=== PATIENT | male | born 1990 | race Caucasian/White ===

== ENCOUNTER 2024-12-05 08:51 | Outpatient (REF) | payer OTHER, SELFPAY ==
[2024-12-05 09:02] LABS: MANUAL DIFF FLAG NO
[2024-12-05 09:05] LABS: Basophils Absolute Auto 0.1 X10*3/uL (0.0-0.2); Basophils Percent Auto 0.7 % (0-2); Eosinophils Absolute Auto 0.2 X10*3/uL (0.0-0.4); Eosinophils Percent Auto 2.1 % (0-4); Hematocrit 46.1 % (42.0-52.0); Hemoglobin 16.9 g/dl (14.0-18.0); Imm Gran Abs Auto 0.07 X10*3/uL (0.00-0.03); Imm Gran Pct Auto 0.8 % (0.0-0.4); Lymphocytes Absolute Auto 3.2 X10*3/uL (1.2-4.9); Lymphocytes Percent Auto 38.2 % (20-40); Mean Corpuscular HGB Conc 36.7 g/dl (31.0-36.0); Mean Corpuscular Hemoglobin 31.7 pg (27.0-33.0); Mean Corpuscular Volume 86.5 fL (80.0-98.0); Mean Platelet Volume 10.2 fL (9.4-12.4); Monocytes Absolute Auto 0.8 X10*3/uL (0.1-1.2); Monocytes Percent Auto 9.5 % (2-11); Neutrophils Percent Auto 48.7 % (45-73); Platelet Count 298 X10*3/uL (160-400); Red Blood Count 5.33 X10*6/uL (4.60-5.80); Red Cell Distribution Width 11.9 % (11.0-16.0); White Blood Count 8.3 X10*3/uL (4.8-10.8)
--- OUTSIDE RECORDS SUMMARY | 2024-12-05 09:16 | XMS_ITS | Clinical Summary ---
Author Organization [facility] Address [address] [facility] [address] Care Team Providers Care Nursing Home Physician Name Role Phone Unavailable Primary Care Provider Unavailabl e Allergies No known active allergies Medications cholecalciferol , VITAMIN D3, 5,000 Units tablet 01/05/2021 Active amLODIPine (NORVASC) 5 mg tablet Take 5 mg by mouth. 09/07/2017 Active ergocalciferol (VITAMIN D-2) 1,250 mcg (50,000 unit) capsule TAKE 1 CAPSULE BY MOUTH ONE TIME PER WEEK 12/15/2021 Active escitalopram (LEXAPRO) 10 mg tablet Take 10 mg by mouth 1 (one) time each day. 01/07/2022 Active hydroCHLOROthia zide (HYDRODIURIL) 25 mg tablet 09/07/2019 Active losartan (COZAAR) 100 mg tablet Take 100 mg by mouth. 09/07/2019 Active Active Problems Problem Noted Date Diagnosed Date Hypertension 03/16/2021 Social History Tobacco Use Types Packs/Day Years Used Date Smoking Tobacco: Never Smokeless Tobacco: Never Tobacco Cessation:Counseling Given: Not Answered Alcohol Use Standard Drinks/Week Comments Yes 4 (1 standard drink = 0.6 oz pur e alcohol) Sex and Gender Information Value Date Recorded Sex Assigned at Not on file Legal Sex Male 6:33 AM PDT Gender Identity Not on file Sexual Orientation Not on file Last Filed Vital Signs Vital Sign Reading Time Taken Comments Blood Pressure 146/89 01/11/2022 8:35 AM EDT Pulse 77 01/11/2022 8:35 AM EDT Temperature - - Respiratory Rate - - Oxygen Saturation - - Inhaled Oxygen Concentration - - Weight - - Height - - Body Mass Index - - Plan of Treatment Health Maintenance Due Date Last Done Comments Dental Prophylaxis 1990 Dental Oral Exam 07/14/2022 01/11/2022 Dental X-Ray: Bitewings 07/14/2022 01/11/2022 Dental X-Ray: Full Mouth 01/12/2025 01/11/2022 Dental X-Ray: Panoramic 01/12/2025 01/11/2022 Meningococcal B Vaccine Aged Out No l onger eligible based on patient's age to complete this topic Procedures Procedure Name Priority Date/Time Associated Diagnosis Comments PANORAMIC RADIOGRAPHIC IMAGE Routine 01/11/2022 9:00 AM EDT INTRAORAL - COMPREHENSIVE SERIES OF RADIOGRAPHIC IMAGES Routine 01/11/2022 9:00 AM EDT COMPREHENSIVE ORAL EVALUATION - NEW OR ESTABLISHED PATIENT Routine 01/11/2022 9:00 AM EDT from Last 3 Months or Most Recently Relevant to Health Maintenance Insurance [address] [address]
--- OUTSIDE RECORDS SUMMARY | 2024-12-05 09:16 | XMS_ITS | Encounter Summary ---
Author Organization [facility] Address [address] [place] [address] Phone Care Team Providers Care Dry Wall Nailer Name Role Phone Dulce Aquino DO Primary Care Pro vider Encounter Details Date Type Department Care Team (Late st Contact Info) Description 06/02/2022 Documentation Only [facility] [address] [place] [address] Garrett Viveros MD [address] [place] [address] Social History Tobacco Use Types Packs/Day Years Used Date Smoking Tobacco: Never Smokeless Tobacco: Never Sex and Gender Information Value Date Recorded Sex Assigned at Male 03/10/2021 2:22 PM EDT Legal Sex Male 4:57 PM EDT Gender Identity Male 03/10/2021 2:22 PM EDT Sexual Orientation Straight 03/10/2021 2: 22 PM EDT documented as of this encounter Plan of Treatment Upcoming Encounters Date Type Department Care Team (Late st Contact Info) Description 11/12/2025 1:30 PM EDT Office Visit [facility] [address] [place] [address] Garrett Viveros MD [address] [place] [address] documented as of this encounter Visit Diagnoses Not on filedocumented in this encounter Care Teams Dry Wall Nailer Relationship Specialty Start Date End Date Dulce Aquino DO PCP - General Internal Medicine 02/16/23 documented as of this encounter
--- OUTSIDE RECORDS SUMMARY | 2024-12-05 09:16 | XMS_ITS | Clinical Summary ---
Author Organization [facility], Address [address] [place] [address] Phone Care Team Providers Care State Patrol Officer Name Role Phone Dulce Aquino DO Primary Care Pro vider Allergies No known active allergies Medications amLODIPine (NORVASC) 5 MG tablet Take 5 mg by mouth 1 (one) time each day For 30 days 1 Active escitalopram (LEXAPRO) 10 MG tablet Take 10 mg by mouth 1 (one) time each day 3 Active losartan (COZAAR) 100 MG tablet TAKE 1 TABLET BY MOUTH EVERY DAY 90 tablet 3 3 Active ergocalciferol 1.25 MG (33725 UT) capsule Take 1 capsule (50,000 Units total) by mouth 1 (one) time per week 12 capsule 3 4 02/16/20 25 Active hydroCHLOROthia zide 25 MG tablet Take 1 tablet (25 mg total) by mouth 1 (one) time each day 90 tablet 5 5 02/12/20 25 Active hydroCHLOROthia zide 25 MG tablet 1 11/14/19 25 Discontinu ed(Reorder (does not appear on AVS)) Active Problems Problem Noted Date Diagnosed Date Hypertension 03/16/2021 Encounters Date Type Department Care Team Description 11/13/2024 1:30 PM EDT Office Visit [facility], [address] [place] [address] Garrett Viveros MD Hypertension (Primary Dx) from Last 3 Months Social History Tobacco Use Types Packs/Day Years Used Date Smoking Tobacco: Never Smokeless Tobacco: Never Sex and Gender Information Value Date Recorded Sex Assigned at Male 03/10/2021 2:22 PM EDT Legal Sex Male 4:57 PM EDT Gender Identity Male 03/10/2021 2:22 PM EDT Sexual Orientation Straight 03/10/2021 2: 22 PM EDT Plan of Treatment Upcoming Encounters Date Type Department Care Team (Late st Contact Info) Description 11/12/2025 1:30 PM EDT Office Visit [facility], [address] [place] [address] Garrett Viveros MD [address] [place] [phone] Health Maintenance Due Date Last Done Comments Hepatitis B Vaccine (1 of 3 - 19+ 3-dose series) 12/26 Pneumococcal Vaccine: Peds ( 0 to 5 Years) and At-Risk Patients (6 to 49 Years) (1 of 2 - PCV) 2009 Influenza Vaccine (Season Ended) 2025 Procedures Procedure Name Priority Date/Time Associated Diagnosis Comments MAGNESIUM Routine 11/12/2024 12:24 PM EDT PHOSPHATE ( PHOSPHORUS) Routine 11/12/2024 12:24 PM EDT URIC ACID Routine 11/12/2024 12:24 PM EDT VITAMIN D 25 HYDROXY Routine 11/12/2024 12:24 PM EDT URINE ALBUMIN / CREATININE RATIO Routine 11/12/2024 12:24 PM EDT URINALYSIS WITH MICROSCOPIC Routine 11/12/2024 12:24 PM EDT COMPREHENSIVE METABOLIC PANEL Routine 11/12/2024 12:24 PM EDT CBC AND DIFFERENTIAL Routine 11/12/2024 12:24 PM EDT MICROSCOPIC EXAMINATION - DO NOT USE Routine 11/12/2024 12:24 PM EDT from Last 3 Months Results * Microscopic Examination (11/12/2024 12:24 PM EDT) WBC, Urine None seen 0 - 5 /hpf [facility] RBC, Urine None seen 0 - 2 /hpf [facility] Squamous Epithelial, Urine None seen 0 - 10 /hpf [facility] Casts None seen None seen /lpf [facility] Bacteria, Urine None seen None seen/Few [facility] 11/12/2024 12:2 4 PM EDT 11/12/2024 us Garrett Viveros MD LAB MICROBIOLOGY - GENERAL ORD ERABLES Final Result [facility] [address] [place] [address] * Urine Albumin / Creatinine Ratio (11/12/2024 12:24 PM EDT) Creatinine, Ur 133.2 Not Estab. mg/dL [facility] Albumin, Urine 21.5 Not Estab. ug/mL [facility] Albumin/Creatin ine Ratio 16 0 - 29 mg/g creat [facility] Comment: ? Normal: ?0 - ??29 ? Moderately increased: 30 - 300 ? Severely increased: ? >300 11/12/2024 12:2 4 PM EDT 11/12/2024 Garrett Viveros MD LAB URINE ORDERABLES Final Res ult Performing Organization Address [facility] Co de Phone Number [facility] [address] [place] [address] * (ABNORMAL) Vitamin D 25 Hydroxy (11/12/2024 12:24 PM EDT) Vitamin D, 25-OH, Total 28.6(L) 30.0 - 100.0 ng/mL [facility] Comment: Vitamin D deficiency has been defined by the [place] of Medicine and an Endocrine Society practice guideline as a level of serum 25-OH vitamin D less than 20 ng/mL (1,2). The Endocrine Society went on to further define vitamin D insufficiency as a level between 21 and 29 ng/mL (2). 1. IOM ([place] of [employer]). 2010. Dietary reference ?? intakes for calcium and D. [place]: The ?? National Academies Press. 2. Taylor MF, King NC, Navneet COWART, et al. ?? Evaluation, treatment, and prevention of vitamin D ?? deficiency: an Endocrine Society clinical practice ?? guideline. JCEM. 2010; 96(7):1911-30. 11/12/2024 12:2 4 PM EDT 11/12/2024 Garrett Viveros MD LAB BLOOD ORDERABLES Final Res ult Performing Organization Address [facility]/ZIP Co de Phone Number [facility] [address] [place] [address] * Urinalysis with microscopic (11/12/2024 12:24 PM EDT) Specific [place], Urine 1.018 1.005 - 1.030 [facility] pH Urine 6.0 5.0 - 7.5 [facility] Color, Urine Yellow Yellow [facility] [phone] Appearance Urine Clear Clear [facility] WBC Esterase Urine Negative Negative [facility] Protein, Ur Negative Negative/Tra ce [facility] Glucose, Ur Negative Negative [facility] Ketones, Urine Negative Negative [facility] Blood Urine Negative Negative [facility] [phone] Bilirubin Urine Negative Negative [facility] Urobilinogen Urine 1.0 0.2 - 1.0 mg/dL [facility] Nitrite, Urine Negative Negative [facility] Microscopic Examination Comment [facility] [phone] Comment:Microscopic follows if indicated. Other Microsc. Observations See below: [facility] [phone] Comment:Microscopic was jozef cated and was performed. 11/12/2024 12:2 4 PM EDT 11/12/2024 us Garrett Viveros MD LAB URINE ORDERABLES Final Res ult [facility] [address] [place] [address] * CBC and Differential (11/12/2024 12:24 PM EDT) WBC 7.2 3.4 - 10.8 x10E3/uL [facility] RBC 4.94 4.14 - 5.80 x10E6/uL [facility] Hemoglobin 15.5 13.0 - 17.7 g/dL [facility] Hematocrit 44.9 37.5 - 51.0 % [facility] MCV 91 79 - 97 fL [facility] MCH 31.4 26.6 - 33.0 pg [facility] MCHC 34.5 31.5 - 35.7 g/dL [facility] RDW 12.7 11.6 - 15.4 % [facility] Platelets 281 150 - 450 x10E3/uL [facility] Neutrophils Relative 51 Not Estab. % [facility] Lymphocytes Relative 37 Not Estab. % [facility] Monocytes 9 Not Estab. % [facility] Eosinophils Relative 2 Not Estab. % [facility] Basophils Relative 1 Not Estab. % [facility] Neutrophils Absolute 3.6 1.4 - 7.0 x10E3/uL [facility] Lymphocytes Absolute 2.7 0.7 - 3.1 x10E3/uL [facility] Monocytes Absolute 0.7 0.1 - 0.9 x10E3/uL [facility] Eosinophils Absolute 0.2 0.0 - 0.4 x10E3/uL [facility] Basophils Absolute 0.1 0.0 - 0.2 x10E3/uL [facility] Immature Granulocytes 0 Not Estab. % [facility] Immature Grans (Absolute) 0.0 0.0 - 0.1 x10E3/uL [facility] 11/12/2024 12:2 4 PM EDT 11/12/2024 us Garrett Viveros MD LAB BLOOD ORDERABLES Final Res ult [facility] [address] [place] [address] * Uric Acid (11/12/2024 12:24 PM EDT) Uric Acid 4.6 3.8 - 8.4 mg/dL [facility] Comment:Therapeutic target f or gout patients: <6.0 11/12/2024 12:2 4 PM EDT 11/12/2024 Garrett Viveros MD LAB BLOOD ORDERABLES Final Res ult Performing Organization Address [facility] Co de Phone Number [facility] [address] [place] [address] * Phosphorus (11/12/2024 12:24 PM EDT) Phosphorus 3.6 2.8 - 4.1 mg/dL [facility] 11/12/2024 12:2 4 PM EDT 11/12/2024 Garrett Viveros MD LAB BLOOD ORDERABLES Final Res ult Performing Organization Address City/[facility]/ZIP Co de Phone Number [facility] [address] [place] [address] * Magnesium (11/12/2024 12:24 PM EDT) Magnesium 2.3 1.6 - 2.3 mg/dL [facility] 11/12/2024 12:2 4 PM EDT 11/12/2024 us Garrett Viveros MD LAB BLOOD ORDERABLES Final Res ult [facility] [address] [place] [address] * (ABNORMAL) Comprehensive Metabolic Panel (11/12/2024 12:24 PM EDT) Calcium 9.7 8.7 - 10.2 mg/dL [facility] Glucose 77 70 - 99 mg/dL [facility] BUN 11 6 - 20 mg/dL [facility] Creatinine 1.01 0.76 - 1.27 mg/dL [facility] eGFR CKD-EPI CR 2020 101 >59 mL/min/1.7 3 [facility] BUN/Creatinine Ratio 11 9 - 20 [facility] Sodium 141 134 - 144 mmol/L [facility] Potassium 4.3 3.5 - 5.2 mmol/L [facility] Chloride 100 96 - 106 mmol/L [facility] Bicarbonate (CO2) 22 20 - 29 mmol/L [facility] Total Protein 7.1 6.0 - 8.5 g/dL [facility] Albumin 4.7 4.1 - 5.1 g/dL [facility] Globulin 2.4 1.5 - 4.5 g/dL [facility] Total Bilirubin 0.7 0.0 - 1.2 mg/dL [facility] Alkaline Phosphatase 106 44 - 121 IU/L [facility] AST (SGOT) 29 0 - 40 IU/L [facility] ALT (SGPT) 57(H) 0 - 44 IU/L [facility] 11/12/2024 12:2 4 PM EDT 11/12/2024 us Garrett Viveros MD LAB BLOOD ORDERABLES Final Res ult [facility] [address] [place] [address] from Last 3 Months Insurance [facility] Care Teams State Patrol Officer Relationship Specialty Start Date End Date Dulce Aquino DO PCP - General Internal Medicine 02/16/23
--- OUTSIDE RECORDS SUMMARY | 2024-12-05 09:16 | XMS_ITS | Encounter Summary ---
Author Organization [facility] Address [address] [place] [address] Phone Care Team Providers Care Chicle Grinder Feeder Name Role Phone Dulce Aquino DO Primary Care Pro vider Encounter Details Date Type Department Care Team (Late st Contact Info) Description 06/02/2022 Documentation Only [facility] [address] [place] [address] Garrett Viveros MD [address] [facility] [place] [address] Social History Tobacco Use Types [...] Visit [facility] [address] [place] [address] Garrett Viveros MD [address] [place] [address] documented as of this encounter Visit Diagnoses Not on filedocumented in this encounter Care Teams Chicle Grinder Feeder Relationship Specialty Start Date End Date Dulce Aquino DO PCP - General Internal Medicine 02/16/23 documented as of this encounter
--- OUTSIDE RECORDS SUMMARY | 2024-12-05 09:16 | XMS_ITS | Encounter Summary ---
Author Organization [facility] Address [address] [place] [address] Care Team Providers Care Rebar Fabricator Name Role Phone Unavailable Primary Care Provider Unavailabl e Prior Encounters Date Type Department Care Team Description 01/11/2022 9:15 AM EDT Office Visit [facility] [address] [place] [address] [address] [facility] 01/11/2022 9:00 AM EDT Office Visit [facility] [address] [place] [address] Sam Razo, PURVI Last Filed Vital Signs Vital Sign Reading Time Taken Comments Blood Pressure 146/89 01/11/2022 8:35 AM EDT Pulse 77 01/11/2022 8:35 AM EDT Temperature - - Respiratory Rate - - Oxygen Saturation - - Inhaled Oxygen Concentration - - Weight - - Height - - Body Mass Index - - Plan of Treatment Not on file Procedures Procedure Name Priority Date/Time Associated Diagnosis Comments SCALING IN PRESENCE OF GENERALIZED MODERATE OR SEVERE GINGIVAL INFLAMMATION Routine 01/11/2022 9:15 AM EDT 31 O RESIN-BASED COMPOSITE - ONE SURFACE, POSTERIOR Routine 01/11/2022 9:00 AM EDT 18 O RESIN-BASED COMPOSITE - ONE SURFACE, POSTERIOR Routine 01/11/2022 9:00 AM EDT INTRAORAL PHOTO Routine 01/11/2022 9:00 AM EDT INTRAORAL PHOTO Routine 01/11/2022 9:00 AM EDT INTRAORAL PHOTO Routine 01/11/2022 9:00 AM EDT INTRAORAL PHOTO Routine 01/11/2022 9:00 AM EDT PANORAMIC RADIOGRAPHIC IMAGE Routine 01/11/2022 9:00 AM EDT INTRAORAL - COMPREHENSIVE SERIES OF RADIOGRAPHIC IMAGES Routine 01/11/2022 9:00 AM EDT COMPREHENSIVE ORAL EVALUATION - NEW OR ESTABLISHED PATIENT Routine 01/11/2022 9:00 AM EDT 18 O AMALGAM FILLING Routine 01/11/2022 12:00 AM EDT 31 O AMALGAM FILLING Routine 01/11/2022 12:00 AM EDT 2 O AMALGAM FILLING Routine 01/11/2022 1 2:00 AM EDT 15 MO AMALGAM FILLING Routine 01/11/2022 12:00 AM EDT Visit Diagnoses Not on file Insurance [facility]
[2024-12-05 10:23] LABS: Iron 131 mcg/dL (45-160); Percent Iron Saturation 46 % (15-50); Total Iron Binding Capacity 284 mcg/dL (228-428); Unsaturated Iron Binding 153 ug/dL
[2024-12-05 10:47] LABS: Ferritin 177 ng/mL (20-250)
== END 2024-12-05 08:52 | disposition home or self-care (01) ==
LOC: HO.BBR 08:51
PROVIDERS: Visit Provider Internal Medicine
DX: E83.110 Hereditary hemochromatosis (principal)
CPT/HCPCS: 36415; 82728; 83540; 85025

== ENCOUNTER 2025-01-08 09:58 | Outpatient (REF) | payer OTHER, SELFPAY ==
[2025-01-08 10:11] LABS: MANUAL DIFF FLAG NO
[2025-01-08 10:12] LABS: Basophils Absolute Auto 0.1 X10*3/uL (0.0-0.2); Basophils Percent Auto 0.8 % (0-2); Eosinophils Absolute Auto 0.1 X10*3/uL (0.0-0.4); Eosinophils Percent Auto 1.9 % (0-4); Hematocrit 45.1 % (42.0-52.0); Hemoglobin 16.7 g/dl (14.0-18.0); Imm Gran Abs Auto 0.03 X10*3/uL (0.00-0.03); Imm Gran Pct Auto 0.4 % (0.0-0.4); Lymphocytes Absolute Auto 2.8 X10*3/uL (1.2-4.9); Lymphocytes Percent Auto 38.3 % (20-40); Mean Corpuscular Hemoglobin 31.7 pg (27.0-33.0); Mean Corpuscular Volume 85.6 fL (80.0-98.0); Mean Platelet Volume 9.8 fL (9.4-12.4); Monocytes Absolute Auto 0.7 X10*3/uL (0.1-1.2); Monocytes Percent Auto 8.9 % (2-11); Neutrophils Absolute Auto 3.6 x10*3/uL (2.0-8.3); Neutrophils Percent Auto 49.7 % (45-73); Platelet Count 292 X10*3/uL (160-400); Red Blood Count 5.27 X10*6/uL (4.60-5.80); Red Cell Distribution Width 11.7 % (11.0-16.0); White Blood Count 7.3 X10*3/uL (4.8-10.8)
--- OUTSIDE RECORDS SUMMARY | 2025-01-08 10:32 | XMS_ITS | Encounter Summary ---
Author Organization [facility] Address [address] [place] [address] Care Team Providers Care Proof Press Operator Name Role Phone Unavailable Primary Care Provider Unavailabl e Prior Encounters Date Type Department Care Team Description 01/11/2022 9:15 AM EDT Office Visit [facility] [address] [place] [address] Dayanna Astudillo [facility] 01/11/2022 9:00 AM EDT Office Visit [facility] [address] [place] [address] Sam Razo, PURVI Last Filed [...] EDT Visit Diagnoses Not on file Insurance [facility]
[2025-01-08 11:21] LABS: Ferritin 82 ng/mL (20-250)
== END 2025-01-08 09:59 | disposition home or self-care (01) ==
LOC: HO.BBR 09:58
PROVIDERS: Visit Provider Internal Medicine
DX: E83.119 Hemochromatosis, unspecified (principal)
CPT/HCPCS: 36415; 82728; 85014; 85018; 85025; 99195

== ENCOUNTER 2025-02-12 13:57 | Outpatient (REF) | payer OTHER, SELFPAY ==
[2025-02-12 14:14] LABS: MANUAL DIFF FLAG NO
[2025-02-12 14:16] LABS: Hematocrit 42.8 % (42.0-52.0); Hemoglobin 15.9 g/dl (14.0-18.0); Imm Gran Abs Auto 0.04 X10*3/uL (0.00-0.03); Imm Gran Pct Auto 0.5 % (0.0-0.4); Lymphocytes Absolute Auto 2.7 X10*3/uL (1.2-4.9); Mean Corpuscular HGB Conc 37.1 g/dl (31.0-36.0); Mean Corpuscular Hemoglobin 31.1 pg (27.0-33.0); Mean Corpuscular Volume 83.6 fL (80.0-98.0); NRBC Abs Auto 0.000 X10*3/uL (0.0-0.012); NRBC Pct Auto 0.0 /100WBC (0.0-0.2); Platelet Count 283 X10*3/uL (160-400); Red Blood Count 5.12 X10*6/uL (4.60-5.80); White Blood Count 8.2 X10*3/uL (4.8-10.8)
--- OUTSIDE RECORDS SUMMARY | 2025-02-12 14:41 | XMS_ITS | Encounter Summary ---
Author Organization [facility] Address [address] [place] [address] Phone Care Team Providers Care Land Economist Name Role Phone Dulce Aquino DO Primary Care Pro vider Encounter Details Date Type Department Care Team (Late st Contact Info) Description 06/02/2022 Documentation Only [facility] [address] [place] [address] Garrett Viveros MD [address] [facility] [place] [address] Social History Tobacco Use Types [...] Visit [facility] [address] [place] [address] Garrett Viveros MD [address] [facility] [place] [address] documented as of this encounter Visit Diagnoses Not on filedocumented in this encounter Care Teams Land Economist Relationship Specialty Start Date End Date Dulce Aquino DO PCP - General Internal Medicine 02/16/23 documented as of this encounter
--- OUTSIDE RECORDS SUMMARY | 2025-02-12 14:41 | XMS_ITS | Encounter Summary ---
Author Organization [facility] Health Address [address] [facility] [place] [address] Care Team Providers Care Lime Kiln And Recausticizing Operator Name Role Phone Unavailable Primary Care Provider Unavailabl e Prior Encounters Date Type Department Care Team Description 01/11/2022 9:15 AM EDT Office Visit [facility] [address] [place] [address] [facility] 01/11/2022 9:00 AM EDT Office Visit [facility] [address] [place] [address] Sam Razo, PURVI Last Filed [...] EDT Visit Diagnoses Not on file [place] [address] [place] [address] PPO
[2025-02-12 15:17] LABS: Iron 93 mcg/dL (45-160); Percent Iron Saturation 30 % (15-50); Total Iron Binding Capacity 310 mcg/dL (228-428); Unsaturated Iron Binding 217 ug/dL
[2025-02-12 15:31] LABS: Ferritin 35 ng/mL (20-250)
== END 2025-02-12 13:58 | disposition home or self-care (01) ==
LOC: HO.BBR 13:57
PROVIDERS: Visit Provider Internal Medicine
DX: E83.110 Hereditary hemochromatosis (principal)
CPT/HCPCS: 36415; 82728; 83540; 85025

== ENCOUNTER 2025-03-27 14:00 | Outpatient (REF) | payer OTHER, SELFPAY ==
--- OUTSIDE RECORDS SUMMARY | 2025-03-27 14:08 | XMS_ITS | Encounter Summary ---
Author Organization [facility] Address [address] [place] [address] Phone Care Team Providers Care Cutting And Printing Machine Operator Name Role Phone Dulce Aquino DO Primary Care Pro vider Encounter Details Date Type Department Care Team (Late st Contact Info) Description 06/02/2022 Documentation Only [facility] [address] [place] [address] Garrett Viveros MD [address] [place] [address] Social History Tobacco Use Types [...] Visit [facility] [address] [place] [address] Garrett Viveros MD [address] [place] [address] documented as of this encounter Visit Diagnoses Not on filedocumented in this encounter Care Teams Cutting And Printing Machine Operator Relationship Specialty Start Date End Date Dulce Aquino DO PCP - General Internal Medicine 02/16/23 documented as of this encounter
--- OUTSIDE RECORDS SUMMARY | 2025-03-27 14:08 | XMS_ITS | Encounter Summary ---
Author Organization [facility] Health Address [address] [facility] [place] [address] Care Team Providers Care Nurse Transplant Name Role Phone Unavailable Primary Care Provider Unavailabl e Prior Encounters Date Type Department Care Team Description 01/11/2022 9:15 AM EDT [facility] [address] [place] [address] Dayanna Astudillo [facility] 01/11/2022 9:00 AM EDT [facility] [address] [place] [address] Sam Razo, PURVI Last [...] EDT Visit Diagnoses Not on file [place] [address] PPO
[2025-03-27 14:21] LABS: MANUAL DIFF FLAG NO
[2025-03-27 14:23] LABS: Hematocrit 44.0 % (42.0-52.0); Hemoglobin 16.5 g/dl (14.0-18.0); Imm Gran Abs Auto 0.04 X10*3/uL (0.00-0.03); Imm Gran Pct Auto 0.5 % (0.0-0.4); Lymphocytes Absolute Auto 2.5 X10*3/uL (1.2-4.9); Mean Corpuscular HGB Conc 37.5 g/dl (31.0-36.0); Mean Corpuscular Hemoglobin 31.0 pg (27.0-33.0); Mean Corpuscular Volume 82.7 fL (80.0-98.0); NRBC Abs Auto 0.000 X10*3/uL (0.0-0.012); NRBC Pct Auto 0.0 /100WBC (0.0-0.2); Platelet Count 265 X10*3/uL (160-400); Red Blood Count 5.32 X10*6/uL (4.60-5.80); White Blood Count 8.5 X10*3/uL (4.8-10.8)
[2025-03-27 15:24] LABS: Iron 117 mcg/dL (45-160); Percent Iron Saturation 40 % (15-50); Total Iron Binding Capacity 295 mcg/dL (228-428); Unsaturated Iron Binding 178 ug/dL
[2025-03-27 15:42] LABS: Ferritin 44 ng/mL (20-250)
== END 2025-03-27 14:01 | disposition home or self-care (01) ==
LOC: HO.BBR 14:00
PROVIDERS: Visit Provider Internal Medicine
DX: E83.118 Other hemochromatosis (principal)
CPT/HCPCS: 36415; 82728; 83540; 85025

== ENCOUNTER 2025-04-30 15:38 | Outpatient (REF) | payer OTHER, SELFPAY ==
[2025-04-30 15:15] LABS: MANUAL DIFF FLAG NO
[2025-04-30 15:16] LABS: Hematocrit 46.0 % (42.0-52.0); Hemoglobin 17.1 g/dl (14.0-18.0); Imm Gran Abs Auto 0.04 X10*3/uL (0.00-0.03); Imm Gran Pct Auto 0.4 % (0.0-0.4); Lymphocytes Absolute Auto 3.1 X10*3/uL (1.2-4.9); Mean Corpuscular HGB Conc 37.2 g/dl (31.0-36.0); Mean Corpuscular Hemoglobin 30.6 pg (27.0-33.0); Mean Corpuscular Volume 82.3 fL (80.0-98.0); NRBC Abs Auto 0.000 X10*3/uL (0.0-0.012); NRBC Pct Auto 0.0 /100WBC (0.0-0.2); Platelet Count 291 X10*3/uL (160-400); Red Blood Count 5.59 X10*6/uL (4.60-5.80); White Blood Count 9.9 X10*3/uL (4.8-10.8)
[2025-04-30 16:07] LABS: Iron 147 mcg/dL (45-160); Percent Iron Saturation 48 % (15-50); Total Iron Binding Capacity 307 mcg/dL (228-428); Unsaturated Iron Binding 160 ug/dL
[2025-04-30 16:20] LABS: Ferritin 78 ng/mL (20-250)
--- OUTSIDE RECORDS SUMMARY | 2025-04-30 17:53 | XMS_ITS | Clinical Summary ---
Author Organization [facility] [place], Address [address] [place] [address] Phone Care Team Providers Care Arterial Embalmer Name Role Phone Dulce Aquino DO Primary [...] EVERY DAY 90 tablet 3 3 Active hydroCHLOROthi azide 25 MG tablet Take 1 tablet (25 mg total) by mouth 1 (one) time each day 90 tablet 5 5 Active ergocalciferol 1.25 MG (21823 UT) capsule Take 1 capsule (50,000 Units total) by mouth 1 (one) time per week 12 capsule 3 5 04/08/20 26 Active ergocalciferol 1.25 MG (63717 UT) capsule Take 1 capsule (50,000 Units total) by mouth 1 (one) time per week 12 capsule 3 4 04/08/20 25 Discontinued Active Problems Problem Noted Date Diagnosed Date Hypertension 03/16/2021 Encounters Date Type Department Care Team Description 04/06/2025 Refill [facility], [address] [place] [address] Garrett Viveros MD from Last 3 Months Social History Tobacco [...] Visit [facility] [place], [address] [place] [address] Garrett Viveros MD [address] [facility] [address] [place] [address] Health Maintenance Due Date Last Done Comments Hepatitis B Vaccine (1 of 3 - 19+ 3-dose series) 12/26 Pneumococcal Vaccine: Peds ( 0 to 5 Years) and At-Risk Patients (6 to 49 Years) (1 of 2 - PCV) 2009 Influenza Vaccine (#1) [address] [facility] Care Teams Arterial Embalmer Relationship Specialty Start Date End Date Dulce Aquino DO PCP - General Internal Medicine 02/16/23
--- OUTSIDE RECORDS SUMMARY | 2025-04-30 17:53 | XMS_ITS | Encounter Summary ---
Author Organization [facility] Address [address] [place] [address] Phone Care Team Providers Care Press Operator Heavy Duty Name Role Phone Dulce Aquino DO Primary Care Pro vider Encounter Details Date Type Department Care Team (Late st Contact Info) Description 06/02/2022 Documentation Only [facility] [address] [place] [address] Garrett Viveros MD [address] [facility] [place] [address] Social History Tobacco Use Types [...] Visit [facility] [address] [place] [address] Garrett Viveros MD [address] [facility] [place] [address] documented as of this encounter Visit Diagnoses Not on filedocumented in this encounter Care Teams Press Operator Heavy Duty Relationship Specialty Start Date End Date Dulce Aquino DO PCP - General Internal Medicine 02/16/23 documented as of this encounter
--- OUTSIDE RECORDS SUMMARY | 2025-04-30 17:53 | XMS_ITS | Encounter Summary ---
Author Organization [facility] Address [address] [place] [address] Phone Care Team Providers Care Ice Skating Teacher Name Role Phone Dulce Aquino DO Primary Care Pro vider Encounter Details Date Type Department Care Team (Late st Contact Info) Description 06/02/2022 Documentation Only [facility] [address] [place] [address] Garrett Viveros MD [address] [facility] [address] [place] [address] Social History Tobacco Use Types [...] Visit [facility] [address] [place] [address] Garrett Viveros MD [address] [facility] [address] [place] [address] documented as of this encounter Visit Diagnoses Not on filedocumented in this encounter Care Teams Ice Skating Teacher Relationship Specialty Start Date End Date Dulce Aquino DO PCP - General Internal Medicine 02/16/23 documented as of this encounter
--- OUTSIDE RECORDS SUMMARY | 2025-04-30 17:53 | XMS_ITS | Clinical Summary ---
Author Organization [facility] Health Address [address] [place] [address] Care Team Providers Care Traveling Storekeeper Name Role Phone Unavailable Primary Care Provider [...] 01/12/2025 01/11/2022 Dental X-Ray: Panoramic 01/12/2025 01/11/2022 Procedures Procedure Name Priority Date/Time Associated Diagnosis Comments PANORAMIC RADIOGRAPHIC IMAGE Routine 01/11/2022 9:00 AM EDT INTRAORAL - COMPREHENSIVE SERIES OF RADIOGRAPHIC IMAGES Routine 01/11/2022 9:00 AM EDT COMPREHENSIVE ORAL EVALUATION - NEW OR ESTABLISHED PATIENT Routine 01/11/2022 9:00 AM EDT from Last 3 Months or Most Recently Relevant to Health Maintenance Insurance
--- OUTSIDE RECORDS SUMMARY | 2025-04-30 17:53 | XMS_ITS | Encounter Summary ---
Author Organization [facility] Health Address [address] [facility] [place] [address] Care Team Providers Care Mechanical Drafter Name Role Phone Unavailable Primary Care Provider Unavailabl e Prior Encounters Date Type Department Care Team Description 01/11/2022 9:15 AM EDT Office Visit [facility] [address] [place] [address] Dayanna Astudillo [facility] 01/11/2022 9:00 AM EDT Office Visit [facility] [address] [place] [address] Sam Razo, PURVI Last Filed [...] EDT Visit Diagnoses Not on file Insurance [place] [address] PPO
== END 2025-04-30 15:39 | disposition home or self-care (01) ==
LOC: HO.BBR 15:38
PROVIDERS: Visit Provider Internal Medicine
DX: E83.110 Hereditary hemochromatosis (principal)
CPT/HCPCS: 36415; 82728; 83540; 85025

== ENCOUNTER 2025-05-28 14:57 | Outpatient (REF) | payer OTHER, SELFPAY ==
[2025-05-28 15:07] LABS: MANUAL DIFF FLAG NO
[2025-05-28 15:09] LABS: Hematocrit 46.6 % (42.0-52.0); Hemoglobin 16.8 g/dl (14.0-18.0); Imm Gran Abs Auto 0.05 X10*3/uL (0.00-0.03); Imm Gran Pct Auto 0.5 % (0.0-0.4); Lymphocytes Absolute Auto 3.1 X10*3/uL (1.2-4.9); Mean Corpuscular HGB Conc 36.1 g/dl (31.0-36.0); Mean Corpuscular Hemoglobin 30.7 pg (27.0-33.0); Mean Corpuscular Volume 85.2 fL (80.0-98.0); NRBC Abs Auto 0.000 X10*3/uL (0.0-0.012); NRBC Pct Auto 0.0 /100WBC (0.0-0.2); Platelet Count 310 X10*3/uL (160-400); Red Blood Count 5.47 X10*6/uL (4.60-5.80); White Blood Count 10.3 X10*3/uL (4.8-10.8)
[2025-05-28 16:08] LABS: Iron 125 mcg/dL (45-160); Percent Iron Saturation 38 % (15-50); Total Iron Binding Capacity 326 mcg/dL (228-428); Unsaturated Iron Binding 201 ug/dL
[2025-05-28 16:27] LABS: Ferritin 40 ng/mL (20-250)
== END 2025-05-28 14:58 | disposition home or self-care (01) ==
LOC: HO.BBR 14:57
PROVIDERS: Visit Provider Internal Medicine
DX: E83.110 Hereditary hemochromatosis (principal)
CPT/HCPCS: 36415; 82728; 83540; 85025

== ENCOUNTER 2025-06-27 14:53 | Outpatient (REF) | payer OTHER, SELFPAY ==
[2025-06-27 15:03] LABS: MANUAL DIFF FLAG NO
[2025-06-27 15:04] LABS: Hematocrit 44.0 % (42.0-52.0); Hemoglobin 15.9 g/dl (14.0-18.0); Imm Gran Abs Auto 0.03 X10*3/uL (0.00-0.03); Imm Gran Pct Auto 0.3 % (0.0-0.4); Lymphocytes Absolute Auto 2.9 X10*3/uL (1.2-4.9); Mean Corpuscular HGB Conc 36.1 g/dl (31.0-36.0); Mean Corpuscular Hemoglobin 30.7 pg (27.0-33.0); Mean Corpuscular Volume 84.9 fL (80.0-98.0); NRBC Abs Auto 0.000 X10*3/uL (0.0-0.012); NRBC Pct Auto 0.0 /100WBC (0.0-0.2); Platelet Count 303 X10*3/uL (160-400); Red Blood Count 5.18 X10*6/uL (4.60-5.80); White Blood Count 10.2 X10*3/uL (4.8-10.8)
--- OUTSIDE RECORDS SUMMARY | 2025-06-27 15:06 | XMS_ITS | Encounter Summary ---
Author Organization [facility] Health Address [address] [facility] [place] [address] Care Team Providers Care Organic Chemistry Professor Name Role Phone Unavailable Primary Care Provider Unavailabl e Prior Encounters Date Type Department Care Team Description 01/11/2022 9:15 AM EDT Office Visit [facility] [address] [place] [address] Dayanna Astudillo [facility] 01/11/2022 9:00 AM EDT Office Visit [facility] [address] [place] [address] Sam Razo, PURVI Last Filed [...] EDT Visit Diagnoses Not on file [place] [address] [place] [address] PPO
--- OUTSIDE RECORDS SUMMARY | 2025-06-27 15:07 | XMS_ITS | Encounter Summary ---
Author Organization [facility] Address [address] [place] [address] Phone Care Team Providers Care Press Worker Helper Name Role Phone Dulce Aquino DO Primary Care Pro vider Encounter Details Date Type Department Care Team (Late st Contact Info) Description 06/02/2022 Documentation Only [facility] [address] [place] [address] aGrrett Viveros MD [address] [facility] [place] [address] Social History Tobacco Use Types [...] Visit [facility] [address] [place] [address] Garrett Viveros MD [address] [facility] [place] [address] documented as of this encounter Visit Diagnoses Not on filedocumented in this encounter Care Teams Press Worker Helper Relationship Specialty Start Date End Date Dulce Aquino DO PCP - General Internal Medicine 02/16/23 documented as of this encounter
--- OUTSIDE RECORDS SUMMARY | 2025-06-27 15:07 | XMS_ITS | Clinical Summary ---
Author Organization [facility] Health Address [address] [place] [address] Care Team Providers Care Machine Heel Builder Name Role Phone Unavailable Primary Care Provider [...]
--- OUTSIDE RECORDS SUMMARY | 2025-06-27 15:07 | XMS_ITS | Encounter Summary ---
Author Organization [facility] Address [address] [place] [address] Phone Care Team Providers Care Cloth Baler Name Role Phone Dulce Aquino DO Primary Care Pro vider Encounter Details Date Type Department Care Team (Late st Contact Info) Description 06/02/2022 Documentation Only [facility] [address] [place] [address] Garrett Viveros MD [address] [place] [address] Social History Tobacco Use Types [...] Visit [facility] [address] [place] [address] Garrett Viveros MD [address] [place] [address] documented as of this encounter Visit Diagnoses Not on filedocumented in this encounter Care Teams Cloth Baler Relationship Specialty Start Date End Date Dulce Aquino DO PCP - General Internal Medicine 02/16/23 documented as of this encounter
--- OUTSIDE RECORDS SUMMARY | 2025-06-27 15:07 | XMS_ITS | Clinical Summary ---
Author Organization [facility] Address [address] [place] [address] Phone Care Team Providers Care Power Technician Name Role Phone Dulce Aquino DO Primary Care Pro vider Allergies No known active allergies Medications amLODIPine (NORVASC) 5 MG tablet Take 5 mg by mouth 1 (one) time each day For 30 days 02/25/2021 Active escitalopram (LEXAPRO) 10 MG tablet Take 10 mg by mouth 1 (one) time each day 10/03/2022 Active losartan (COZAAR) 100 MG tablet TAKE 1 TABLET BY MOUTH EVERY DAY 90 tablet 3 03/14/2023 Active hydroCHLOROthia zide 25 MG tablet Take 1 tablet (25 mg total) by mouth 1 (one) time each day 90 tablet 5 11/13/2024 Active ergocalciferol 1.25 MG (27060 UT) capsule Take 1 capsule (50,000 Units total) by mouth 1 (one) time per week 12 capsule 3 04/08/2025 6 Active Active Problems Problem Noted Date Diagnosed Date Hypertension 03/16/2021 Encounters Date Type Department Care Team Description 04/06/2025 Refill [facility], [address] [place] [address] Garrett Viveros MD from Last [...] Visit [facility] [place], [address] [place] [address] Garrett Viveros MD [address] [facility] [place] [address] Health Maintenance Due Date Last Done Comments Hepatitis B Vaccine (1 of 3 - 19+ 3-dose series) 12/26 Pneumococcal Vaccine: Peds ( 0 to 5 Years) and At-Risk Patients (6 to 49 Years) (1 of 2 - PCV) 2009 Influenza Vaccine (#1) 2025 Insurance [facility] Care Teams Power Technician Relationship Specialty Start Date End Date Dulce Aquino DO PCP - General Internal Medicine 02/16/23
[2025-06-27 15:57] LABS: Iron 157 mcg/dL (45-160); Percent Iron Saturation 48 % (15-50); Total Iron Binding Capacity 328 mcg/dL (228-428); Unsaturated Iron Binding 171 ug/dL
[2025-06-27 16:11] LABS: Ferritin 26 ng/mL (20-250)
== END 2025-06-27 14:54 | disposition home or self-care (01) ==
LOC: HO.BBR 14:53
PROVIDERS: Visit Provider Internal Medicine
DX: E83.110 Hereditary hemochromatosis (principal)
CPT/HCPCS: 36415; 82728; 83540; 85025

== ENCOUNTER 2025-07-24 14:46 | Outpatient (REF) | payer OTHER, SELFPAY ==
[2025-07-24 15:02] LABS: MANUAL DIFF FLAG NO
[2025-07-24 15:03] LABS: Hematocrit 44.0 % (42.0-52.0); Hemoglobin 16.1 g/dl (14.0-18.0); Imm Gran Abs Auto 0.02 X10*3/uL (0.00-0.03); Imm Gran Pct Auto 0.2 % (0.0-0.4); Lymphocytes Absolute Auto 2.7 X10*3/uL (1.2-4.9); Mean Corpuscular HGB Conc 36.6 g/dl (31.0-36.0); Mean Corpuscular Hemoglobin 30.7 pg (27.0-33.0); Mean Corpuscular Volume 84.0 fL (80.0-98.0); NRBC Abs Auto 0.000 X10*3/uL (0.0-0.012); NRBC Pct Auto 0.0 /100WBC (0.0-0.2); Platelet Count 291 X10*3/uL (160-400); Red Blood Count 5.24 X10*6/uL (4.60-5.80); White Blood Count 8.1 X10*3/uL (4.8-10.8)
[2025-07-24 16:02] LABS: Ferritin 25 ng/mL (20-250); Iron 96 mcg/dL (45-160); Percent Iron Saturation 32 % (15-50); Total Iron Binding Capacity 299 mcg/dL (228-428); Unsaturated Iron Binding 203 ug/dL
--- OUTSIDE RECORDS SUMMARY | 2025-07-24 18:52 | XMS_ITS | Encounter Summary ---
Author Organization [facility] Health Address [address] [facility] [place] [address] Care Team Providers Care Aerodynamic Consultant Name Role Phone Unavailable Primary Care Provider Unavailabl e Prior Encounters Date Type Department Care Team Description 01/11/2022 9:15 AM EDT Office Visit [facility] [address] [place] [address] Dayanna Astudillo [facility] 01/11/2022 9:00 AM EDT Office Visit [facility] [address] [place] [address] Sam Razo, PURVI Last Filed [...] EDT Visit Diagnoses Not on file [place] [address] [place] [address] PPO
--- OUTSIDE RECORDS SUMMARY | 2025-07-24 18:52 | XMS_ITS | Clinical Summary ---
Author Organization [facility] Health Address [address] [place] [address] Care Team Providers Care Bryologist Name Role Phone Unavailable Primary Care Provider [...]
== END 2025-07-24 14:47 | disposition home or self-care (01) ==
LOC: HO.BBR 14:46
PROVIDERS: Visit Provider Internal Medicine
DX: E83.110 Hereditary hemochromatosis (principal)
CPT/HCPCS: 36415; 82728; 83540; 85025